=== PATIENT | female | born 1945 | race Caucasian/White ===

== ENCOUNTER 2025-04-24 10:06 | Outpatient (AMB) | payer MEDICARE, OTHER, SELFPAY ==
[2025-04-24 10:14] VITALS: BMI 34.5
--- NOTE | 2025-04-24 10:14 | HO.SPINEOV ---
Vital Signs 04/24/25 10:14 Height 5 ft 3 in Weight 195 lb BMI 34.5 Intake Visit Reasons: low back pain Intake Note: Mrs. Felix is here today c/o low back pain. 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 She is a very nice 80-year-old female who began experiencing acute onset back pain about a month ago after she has had some kind of GI illness. It is localizing itself best in the paraspinal regions of the lumbar area and will wrap around toward her abdomen as well. She is nothing radiating down the legs, no cauda equina symptoms. She was treated with ibuprofen and hydrocodone. She underwent an MRI showing an acute L1 compression fracture was sent down today to see us. PMH: History of hypothyroidism, history of previous TIA, hypertension, tonsillectomy, hysterectomy, cholecystectomy, appendectomy, osteopenia Social hx: She quit smoking 30 years ago, does not use any marijuana or alcohol Medications: Levothyroxine, omeprazole, vitamin-D, Vicodin, lorazepam, losartan Allergies: Percocet Physical exam: Awake alert oriented no acute distress but does have trouble standing up straight, tenderness in the lumbar region to palpation, strength and reflexes are normal with the exception of the right knee which is somewhat brisk. Imaging review: Lumbar MRI done at [facility] shows normal alignment of the lumbar spine, there is an acute compression fracture at L1, possibly an old compression fracture at T11. There is no retropulsion in the canal. Impression: 80-year-old female presents with acute onset of spontaneous back pain in the setting of what looks like an acute L1 compression fracture. I sat her down and went over her imaging with her, she is feeling better than she was when all this started. Typically these will heal on their own if given enough time and she seems like she is getting better with some gentle physical therapy and tincture of time. She was asking about a brace that she has a home to use and I told her that if she feels like it would help that it is fine, but to discontinue it after a few weeks. Right now since the pain is getting better she does not have an indication for kyphoplasty. Although she tells me she had a recent bone scan demonstrating osteopenia, usually a fracture like this without any provocative trauma is usually a sign of osteoporosis. Not sure if that should prompt an endocrinology consult. It is our experience that DEXA scans tend to underestimate the amount of bone loss. Thank you for allowing us to care for your patient. The total time spent with this visit with this patient was 45 minutes reviewing history, physical exam, lumbar imaging review, and implementation of treatment plan or further diagnostic testing Raymond Bernabe MD,PhD [facility] Coding Level of Care Code New Pt Level 4 (39900) Diagnoses Compression fracture of L1 lumbar vertebra S32.010A
--- OUTSIDE RECORDS SUMMARY | 2025-04-24 10:49 | XMS_ITS ---
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 Name Role Phone Raymond Nieto Primary Care Provider ALLERGIES Allergen (clinical drug ingredient) Drug/Non Drug Allergy documented on EMR Reaction Allergy Type Onset Date Status acetaminophen / oxycodone Percocet hives Drug Allergy Active REASON FOR VISIT (IN OFFICE), Follow Up MEDICATIONS Medication SIG (Take, Route, Frequency, Duration) Notes Start Date End Date Status Omeprazole 40 MG TAKE 1 CAPSULE BY MOUTH EVERY DAY 30 MINUTES BEFORE MORNING MEAL for 90 Active Nystatin-Triamcinolone 889318-9.1 UNIT/GM 1 application Externally Twice a day 04/08/2025 Active Naloxegol Oxalate 25 MG 1 tablet in the morning Orally Once a day for 30 days 03/23/2025 Not-Taking Nystop 869994 UNIT/GM 1 application Externally Twice a day for 30 days 02/25/2024 Active Hyoscyamine Sulfate 0.125 MG 1 tablet on the tongue and allow to dissolve as needed Orally every 4 hrs for 30 days Not-Taking Lidoderm 5 % 1 patch remove after 12 hours Externally Once a day 03/16/2025 Active Levocetirizine Dihydrochloride 5 MG 1 tablet in the evening Orally Once a day for 30 days Active Simethicone 125 MG 1 capsule after meal s and at bedtime as needed Orally Four times a day Active Losartan Potassium 100 MG TAKE 1 TABLET BY MOUTH EVERY DAY Active Omeprazole 40 MG TAKE 1 CAPSULE BY MOUTH EVERY MORNING 30 MINUTES BEFORE MEAL Active Furosemide 20 MG 1 tablet Orally Once a day for 30 days Active Ibuprofen 800 MG 1 tablet with food o r milk as needed Orally every 8 hrs for 30 days 04/16/2025 Active LORazepam 0.5 MG 1 tablet as needed Orally Once a day for 30 days 04/16/2025 Active Vitamin D3 1000 UNIT 1 capsule Orally On ce a day Active Levothyroxine Sodium 25 MCG TAKE 1 TABLET BY MOUTH EVERY DAY IN THE MORNING ON EMPTY STOMACH Active Cyclobenzaprine HCl 10 MG 0.5 tablet in am and 1 tablet at bedtime as needed Orally Twice a day for 30 days 03/13/2025 Active HYDROcodone-Acetaminophen 5-325 MG 1 tablet as needed at bedtime Orally once a day partial fill upon request for 30 days 04/16/2025 Active Meloxicam 15 MG 1 tablet Orally Once a day for 30 day(s) 03/31/2025 Not-Taking Losartan Potassium 100 MG TAKE 1 TABLET BY MOUTH EVERY DAY for 90 Active SOCIAL HISTORY Tobacco Use: Social History Observation Description Date Details (start date - stop date) Former Smoker NA - NA Sex Assigned At : Social History Observation Description Sex Assigned At Unknown Tobacco Use/Smoking Question Answer Notes Are you a former smoker How long has it been since you last smoked? > 10 years VITAL SIGNS Blood pressure systolic 120 mm Hg 04/16/20 25 Blood pressure diastolic 80 mm Hg 025 Heart Rate 76 /min 04/16/2025 Height 65 in 04/16/2025 Weight 199.8 lbs 04/16/2025 BMI 33.24 kg/m2 04/16/2025 Encounters Encounter Location Date Provider Diagnosis [facility] [phone] 04/16/2025 Raymond Nieto Bilateral leg edema R60.0 ; Compression fracture of L1 vertebra with delayed healing, subsequent encounter S32.010G ; TIA (transient ischemic attack) G45.9 ; Essential hypertension I10 ; Acquired hypothyroidism E03.9 ; Irritable bowel syndrome without diarrhea K58.9 ; Gastroesophageal reflux disease without esophagitis K21.9 ; Anxiety F41.9 ; Osteopenia M85.80 ; Cutaneous candidiasis B37.2 and Vitamin D deficiency E55.9 ASSESSMENTS Encounter Date Diagnosis Assessment Notes Treatment Notes Treatment Clinical Notes 04/16/2025 Bilateral leg edema (ICD-10 - R60.0) 04/16/2025 Compression fracture of L1 vertebra with delayed healing, subsequent encounter (ICD-10 - S32.010G) In accordance with Chapter 52 - Acts of 2016, '' An Act Relative to Substance Use Treatment, Education and Prevention, the risks associated with opioid and opioid-like substances has been discussed with the patient. The patient clearly understands that the medication is to control chronic pain and to improve quality of life and functionality. Patient uses the medication judiciously as prescribed and displays no aberrant behavior. The patient has been made aware of other non-opioid treatment options including medications and interventional procedures. The patient was given the option to fill the prescription in lesser amount. [place] PAT verified. 04/16/2025 TIA (transient ischemic attack) (ICD-10 - G45.9) 04/16/2025 Essential hypertensi on (ICD-10 - I10) 04/16/2025 Acquired hypothyroidism (ICD-10 - E03.9) 04/16/2025 Irritable bowel syndrome without diarrhea (ICD-10 - K58.9) 04/16/2025 Gastroesophageal reflux disease without esophagitis (ICD-10 - K21.9) 04/16/2025 Anxiety (ICD-10 - F41.9) 04/16/2025 Osteopenia (ICD-10 - M85.80) 04/16/2025 Cutaneous candidiasi s (ICD-10 - B37.2) 04/16/2025 Vitamin D deficiency (ICD-10 - E55.9) 04/16/2025 Other This chart has been transcribed by a computerized dictation system. There are likely to be multiple clarifier inaccuracies despite chart review. PLAN OF TREATMENT Medication Medication Name Sig Start Date Stop Date Notes Losartan Potassium 100 MG TAKE 1 TABLET BY MOUTH EVERY DAY Omeprazole 40 MG TAKE 1 CAPSULE BY [facility] EVERY MORNING 30 MINUTES BEFORE MEAL Furosemide 20 MG 1 tablet Orally Once a day for 30 days Ibuprofen 800 MG 1 tablet with food o r milk as needed Orally every 8 hrs for 30 days 04/16/2025 LORazepam 0.5 MG 1 tablet as needed O rally Once a day for 30 days 04/16/2025 Vitamin D3 1000 UNIT 1 capsule Orally On ce a day Levothyroxine Sodium 25 MCG TAKE 1 TABLE T BY MOUTH EVERY DAY IN THE MORNING ON EMPTY STOMACH Cyclobenzaprine HCl 10 MG 0.5 tablet in am and 1 tablet at bedtime as needed Orally Twice a day for 30 days 03/13/2025 HYDROcodone-Acetaminophen 5- 325 MG 1 tablet as needed at bedtime Orally once a day partial fill upon request for 30 days 04/16/2025 Treatment Notes Assessment Notes Compression fracture of L1 v ertebra with delayed healing, subsequent encounter In accordance with Chapter 52 - Acts of 2016, '' An Act Relative to Substance Use Treatment, Education and Prevention, the risks associated with opioid and opioid-like substances has been discussed with the patient. The patient clearly understands that the medication is to control chronic pain and to improve quality of life and functionality. Patient uses the medication judiciously as prescribed and displays no aberrant behavior. The patient has been made aware of other non-opioid treatment options including medications and interventional procedures. The patient was given the option to fill the prescription in lesser amount. [place] PAT verified. Other This chart has been transcribed by a computerized dictation system. There are likely to be multiple clarifier inaccuracies despite chart review. Next Appt Details Follow Up: cx 04/20 appt, 4 We eks, Reason: Follow-up Provider Name:Raymond ashby, 05/20/2025 11:15:00 AM, [address] [place] [address], [phone], Progress Notes * Examination Category Sub-Category Detail Notes General Examination GENERAL APPEARANCE: in no ac [place] distress, well developed, well nourished HEAD: normocephalic, atrau matic EYES: pupils equal, round, reactive to light and accommodation THROAT: clear, no erythema, uvula midline, no exudate NECK/THYROID: neck supple, no thyr omegaly, trachea midline, no carotid bruit HEART: no murmurs, regular rate and rhythm, S1, S2 normal LUNGS: clear to auscultatio n bilaterally ABDOMEN: soft, nontender, non distended, no organomegaly , bowel sounds present NEUROLOGIC: alert and oriented x 3, nonfocal SKIN: no suspicious lesion s, warm and dry EXTREMITIES: no clubbing, cyanosi s, 1+ bilateral pedal edema PERIPHERAL PULSES: normal, 2+ throughou t MUSCULOSKELETAL: Palpation of lumbosa cral spine no point tenderness, paravertebral spasm present LYMPH NODES: no cervical, axillar y, supraclavicular or inguinal adenopathy PSYCH: cognitive function i ntact, mood/affect full range ORAL CAVITY: mucosa moist, no les ions, palate normal, tongue in midline, well papillated
== END 2025-04-24 10:56 | disposition home or self-care (01) ==
LOC: HO.HNS 10:06
PROVIDERS: PCP Internal Medicine; Referring Provider Internal Medicine; Visit Provider Physician Assistant
DX: S32.010A Wedge compression fracture of first lumbar vertebra, initial encounter for closed fracture (principal)
CPT/HCPCS: 99204

== ENCOUNTER → 2025-04-24 10:06 | Outpatient (BNVA) | payer MEDICARE, OTHER, SELFPAY | PROVIDERS: PCP Internal Medicine; Referring Provider Internal Medicine; Visit Provider Physician Assistant | DX: S32.010A Wedge compression fracture of first lumbar vertebra, initial encounter for closed fracture (principal) | CPT/HCPCS: 99202 ==

== ENCOUNTER 2025-05-15 10:30 | Outpatient (REF) | payer MEDICARE, OTHER, SELFPAY ==
--- NOTE | ~2025-05-15 | XR_ITS ---
CLINICAL HISTORY: S32.010A - Wedge compression fracture of first lumbar vertebra, initial ... --- Additional Notes or Special Instructions: standing, a p and lateral Lumbar spine two views Comparison: No prior studies of any type Findings: Severe T11 and L1 compression fractures. Moderate T12 compression fractures. Mild L3 and L4 compression fractures. Posterior alignment is normal. Severe degenerative change. Surgical clips right upper quadrant. Impression: Multiple vertebral body compression fractures This document has been electronically signed by: Marshall Brink MD on 05/16/2025 20:16:14
== END 2025-05-15 10:31 | disposition home or self-care (01) ==
LOC: HO.HOSX 10:30
PROVIDERS: PCP Internal Medicine; Visit Provider Physician Assistant
DX: S32.010A Wedge compression fracture of first lumbar vertebra, initial encounter for closed fracture (principal)
CPT/HCPCS: 72110; 99212

== ENCOUNTER 2025-05-15 10:30 | Outpatient (AMB) | payer MEDICARE, OTHER, SELFPAY ==
--- OUTSIDE RECORDS SUMMARY | 2025-05-07 09:00 | XMS_ITS ---
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 Name Role Phone Raymond Nieto Primary Care Provider ALLERGIES Allergen (clinical drug ingredient) Drug/Non Drug Allergy documented on EMR Reaction Allergy Type Onset Date Status acetaminophen / oxycodone Percocet hives Drug Allergy Active REASON FOR VISIT (IN OFFICE), Sick Visit MEDICATIONS Medication SIG (Take, Route, Frequency, Duration) Notes Start Date End Date Status Omeprazole 40 MG TAKE 1 CAPSULE BY [facility] EVERY MORNING 30 MINUTES BEFORE MEAL Active Levothyroxine Sodium 25 MCG TAKE 1 TABLE T BY MOUTH EVERY DAY IN THE MORNING ON EMPTY STOMACH for 90 Active LORazepam 0.5 MG 1 tablet as needed Orally Once a day for 30 days Active Furosemide 20 MG 1 tablet Orally Once a day for 30 days Active Losartan Potassium 100 MG TAKE 1 TABLET BY MOUTH EVERY DAY for 90 Active Vitamin D3 1000 UNIT 1 capsule Orally On ce a day Active Levothyroxine Sodium 25 MCG TAKE 1 TABLE T BY MOUTH EVERY DAY IN THE MORNING ON EMPTY STOMACH Active Omeprazole 40 MG TAKE 1 CAPSULE BY MO U[facility] EVERY DAY 30 MINUTES BEFORE MORNING MEAL for 90 Active Simethicone 125 MG 1 capsule after meal s and at bedtime as needed Orally Four times a day Active Levocetirizine Dihydrochloride 5 MG 1 tablet in the evening Orally Once a day for 30 days Active Nystop 144726 UNIT/GM 1 application Exte rnally Twice a day for 30 days 02/25/2024 Active Lidoderm 5 % 1 patch remove after 12 hours Externally Once a day 03/16/2025 Active Ibuprofen 800 MG 1 tablet with food o r milk as needed Orally every 8 hrs for 30 days Active Losartan Potassium 100 MG 1 tablet Orall y Once a day for 90 Days Active Cyclobenzaprine HCl 10 MG 0.5 tablet in am and 1 tablet at bedtime as needed Orally Twice a day for 30 days Active Calcium Carbonate-Vitamin D 600-10 MG-MCG 1 tablet with a meal Orally Twice a day for 90 Days 05/07/2025 Active HYDROcodone-Acetaminophen 5-325 MG 1 tablet as needed at bedtime Orally Twice a day partial fill upon request for 30 days 05/07/2025 Active SOCIAL HISTORY Tobacco Use: Social History Observation Description Date Details (start date - stop date) Former Smoker NA - NA Sex Assigned At : Social History Observation Description Sex Assigned At Unknown Tobacco Use/Smoking Question Answer Notes Are you a former smoker How long has it been since you last smoked? > 10 years Alcohol Screen Question Answer Notes Did you have a drink contain ing alcohol in the past year? Yes How often did you have a dri nk containing alcohol in the past year? 2 to 4 times a month (2 points) How many drinks did you have on a typical day when you were drinking in the past year? 1 or 2 drinks (0 point) How often did you have 6 or more drinks on one occasion in the past year? Never (0 point) Points 2 Interpretation Negative Section Notes: Drugs/Alcohol:(Alcohol Screen): Points: 1, Interpretation: Negative Drugs/Alcohol:(Drugs):Have you used drugs other than those for medical reasons in the past 12 months? No Tobacco Use:(Tobacco Use/Smoking):Are you a: former smoker, smoked 1PPD for 20 years, quit 2002 VITAL SIGNS Blood pressure systolic 130 mm Hg 05/07/20 25 Blood pressure diastolic 80 mm Hg 025 Heart Rate 80 /min 05/07/2025 Height 65 in 05/07/2025 Weight 197.2 lbs 05/07/2025 BMI 32.81 kg/m2 05/07/2025 Encounters Encounter Location Date Provider Diagnosis [facility] [address] [place] [address] 05/07/2025 Raymond Nieto Bilateral leg edema R60.0 ; [...] Assessment Notes Treatment Notes Treatment Clinical Notes Section Notes 05/07/2025 Bilateral leg edema (ICD-10 - R60.0) 05/07/2025 Compression fracture of L1 vertebra with delayed [...] prescription in lesser amount. [place] PAT verified. 05/07/2025 TIA (transient ischemic attack) (ICD-10 - G45.9) 05/07/2025 Essential hypertension (ICD-10 - I10) 05/07/2025 Acquired hypothyroidism (ICD-10 - E03.9) 05/07/2025 Irritable bowel syndrome without diarrhea (ICD-10 - K58.9) 05/07/2025 Gastroesophageal reflux disease without esophagitis (ICD-10 - K21.9) 05/07/2025 Anxiety (ICD-10 - F41.9) 05/07/2025 Osteopenia (ICD-10 - M85.80) 05/07/2025 Cutaneous candidiasis (ICD-10 - B37.2) 05/07/2025 Vitamin D deficiency (ICD-10 - E55.9) 05/07/2025 Other This chart has been transcribed by a computerized dictation system. There are likely to be multiple clinical medical transcriptionist inaccuracies despite chart review. PLAN OF TREATMENT Medication Medication Name Sig Start Date Stop Date Notes Omeprazole 40 MG TAKE 1 CAPSULE BY [facility] EVERY MORNING 30 MINUTES BEFORE MEAL LORazepam 0.5 MG 1 tablet as needed O rally Once a day for 30 days Furosemide 20 MG 1 tablet Orally Once a day for 30 days Vitamin D3 1000 UNIT 1 capsule Orally Once a day Levothyroxine Sodium 25 MCG TAKE 1 TABLE T BY MOUTH EVERY DAY IN THE MORNING ON EMPTY STOMACH Nystop 685950 UNIT/GM 1 application Exte rnally Twice a day for 30 days 02/25/2024 Ibuprofen 800 MG 1 tablet with food o r milk as needed Orally every 8 hrs for 30 days Losartan Potassium 100 MG 1 tablet Orall y Once a day for 90 Days Cyclobenzaprine HCl 10 MG 0.5 tablet in am and 1 tablet at bedtime as needed Orally Twice a day for 30 days Calcium Carbonate-Vitamin D 600-10 MG-MCG 1 tablet with a meal Orally Twice a day for 90 Days 05/07/2025 HYDROcodone-Acetaminophen 5- 325 MG 1 tablet as needed at bedtime Orally Twice a day partial fill upon request for 30 days 05/07/2025 Treatment Notes Assessment Notes Compression fracture of [...] to fill the prescription in lesser amount. [facility]. Other This chart has been transcribed by a computerized dictation system. There are likely to be multiple clinical medical transcriptionist inaccuracies despite chart review. Next Appt Details Follow Up: 4 Weeks, Reason: Follow-up formerly [facility] Dr. Nieto Provider Name:Raymond ashby, 06/05/2025 09:15:00 AM, [address] [place] [address], [phone], Progress Notes * Examination Category Sub-Category Detail Notes Category Not es General Examination GENERAL APPEARANCE: in no ac [place] distress, well developed, well nourished HEAD: normocephalic, [...] alert and oriented x 3, nonfocal SKIN: Extensive hyperemic rash under bilateral breasts and gluteal area EXTREMITIES: no clubbing, cyanosi s, 1+ bilateral pedal edema PERIPHERAL PULSES: normal, 2+ throughou t MUSCULOSKELETAL: Palpation of lumbosa cral spine no point tenderness, paravertebral spasm present LYMPH NODES: no cervical, axillar y, supraclavicular or inguinal adenopathy PSYCH: cognitive function i ntact, mood/affect full range ORAL CAVITY: mucosa moist, no les ions, palate normal, tongue in midline, well papillated History and Physical Notes * HPI (History of Present Illness) Category Sub-Category Detail Notes Category Not es Symptom(s) 80-year-old fem sly patient with history of hypertension, hypothyroidism, GERD, IBS, cystocele and rectocele is here complaining of worsening of her low back pain. Patient was recently evaluated at the spine center. I reviewed available consultation notes from spine center which really did not recommend any definitive treatment except bone marrow density. Patient had repeat bone density which shows osteopenia. I started the patient on Caltrate D. She tells me that the pain is worse and she needs 1 Vicodin twice a day. I sent a new prescription for her. She also has ran out of her hill medication and the pharmacy told her that she needs a new prescription from us. I sent a new prescription for losartan.She also complains of pruritic rash in the bilateral breast and gluteal area. I talked to the patient about continuous candidiasis and started on nystatin powder because she doesn't like the cream.
--- NOTE | 2025-05-15 10:56 | HO.SPINEOV ---
Intake Visit Reasons: ongoing back pain Intake Note: Ms. Felix is here today c/o of Severe ongoing back pain and Difficulty with walking. 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 I saw her earlier this month for an L1 compression fracture that was really pretty manageable in terms of pain control and we discussed the option of just continuing to let the fracture heal on its own for whatever reason, about a week ago the pain started to intensify and it changed in location. It seems to be now more centered our along her lower lumbar spine instead of previously it was in the middle of her lumbar spine wrapping around to her abdomen. The pain has been so intense she has had to take Vicodin. She is barely able to stand up and walk around. She can not lay down on her bed at all. She has to sleep in a recliner. She came in today for an evaluation because of the change in symptoms. I examined her, she is extremely uncomfortable, it takes her about 2-3 minutes just to get out of a chair, she can not get vertical and stand up straight. Her leg strength seems okay but her hip flexion is limited by pain in her low back. The symptoms seemed to localize somewhere little bit lower down maybe L4-L5. I am going to repeat an x-ray look for a new fracture, and we will send her for an urgent MRI just in case there is an occult fracture that we are not seeing on the x-ray. I will send an urgent referral to who does kyphoplasty. Total amount of time spent in this visit was 20 minutes in discussion of symptoms, previous lumbar MRI imaging results and subsequent plan of care Raymond Bernabe MD,PhD [facility] Orders: Orders XR lumbar spine 4V min Today S32.010A - Wedge compression fracture of first lumbar vertebra, initial encounter for closed fracture MR lumbar spine wo con Today S32.010A - Wedge compression fracture of first lumbar vertebra, initial encounter for closed fracture Referrals Pain Management Referral S32.010A - Wedge compression fracture of first lumbar vertebra, initial encounter for closed fracture Coding Level of Care Code Est Pt Level 3 (76508) Diagnoses Compression fracture of L1 lumbar vertebra S32.010A
== END 2025-05-15 11:58 | disposition home or self-care (01) ==
LOC: HO.HNS 10:31
PROVIDERS: PCP Internal Medicine; Visit Provider Physician Assistant
DX: S32.010A Wedge compression fracture of first lumbar vertebra, initial encounter for closed fracture (principal)
CPT/HCPCS: 99213

== ENCOUNTER → 2025-05-15 11:36 | Outpatient (BNV) | payer MEDICARE, OTHER, SELFPAY | PROVIDERS: PCP Internal Medicine; Visit Provider Radiology Diagnostic Radiology | DX: S22.080A Wedge compression fracture of T11-T12 vertebra, initial encounter for closed fracture (principal) | CPT/HCPCS: 72110 ==